=== PATIENT | male | born 1945 | race Caucasian/White ===

== ENCOUNTER 2019-11-04 11:07 | Emergency (ER) | payer MEDICARE, BC ==
[~2019-11-04] VITALS: Ht 165.1 cm; Wt 108.2 kg
[2019-11-04] MEDS ORDERED: morphine 4 MG/ML inj SYRINge IM ONE (12:40)
[2019-11-04] MEDS ORDERED: colchicine 0.6mg tablet PO ONE (12:40)
[2019-11-04] MEDS ORDERED: ketorolac tromethamine 15mg/ml inj. IM ONE (12:40)
[2019-11-04] MEDS ORDERED: COLC0.6T69 PO (12:43)
[2019-11-04 13:10] VITALS: BP 152/95
== END 2019-11-04 13:12 | disposition home or self-care (01) ==
LOC: ER 11:09
DX: M10.9 Gout, unspecified (principal); R22.42 Localized swelling, mass and lump, left lower limb; Z79.899 Other long term (current) drug therapy
CPT/HCPCS: 96372; 99284; J1885; J2270

== ENCOUNTER 2020-03-18 15:04 | Emergency (ER) | payer MEDICARE, BC ==
[~2020-03-18] VITALS: Ht 165.1 cm; Wt 97.0 kg
[~2020-03-18 15:04] MED LIST: COLC0.6T69 PO
[2020-03-18 15:43] LABS: BASOPHILS % (AUTO) 0.5 % (0-1); EOSINOPHILS # (AUTO) 0.2 X10'3 (0-0.9); EOSINOPHILS % (AUTO) 2.7 % (0-6); HEMATOCRIT 44.2 % (42.0-52.0); HEMOGLOBIN 14.7 g/dl (14.0-17.9); LYMPHOCYTES # (AUTO) 1.1 X10'3 (1.1-4.8); MEAN CORPUSCULAR HEMOGLOBIN 30.7 PG (27.0-31.0); MEAN CORPUSCULAR HGB CONC 33.3 g/dL (33.0-36.5); MEAN CORPUSCULAR VOLUME 92.2 FL (78-98); MEAN PLATELET VOLUME 8.9 FL (7.4-10.4); MONOCYTES # (AUTO) 0.6 X10'3 (0-0.9); NEUTROPHILS # (AUTO) 4.6 X10'3 (1.8-7.7); NEUTROPHILS % (AUTO) 70.8 % (42-75); PLATELET COUNT 201 X10'3 (140-440); RED CELL DISTRIBUTION WIDTH 13.5 % (11.5-14.5); WHITE BLOOD COUNT 6.5 X10'3 (4.5-11.0)
[2020-03-18 15:57] LABS: ALANINE AMINOTRANSFERASE 28 U/L (12-78); ALBUMIN 3.6 G/DL (3.4-5.0); ALBUMIN/GLOBULIN RATIO 1.3 (1.1-1.5); ALKALINE PHOSPHATASE 98 IU/L (46-116); ANION GAP 10 (8-16); ASPARTATE AMINO TRANSFERASE 20 U/L (10-37); BILIRUBIN,TOTAL 0.5 MG/DL (0.1-1.0); BLOOD UREA NITROGEN 13 MG/DL (7-18); BUN/CREATININE RATIO 9.5 (5.4-32.0); CALCIUM 8.5 MG/DL (8.5-10.1); CHLORIDE 110 MMOL/L (99-107); CREATININE 1.37 MG/DL (0.60-1.10); GLUCOSE 101 MG/DL (70-104); POTASSIUM 4.1 MMOL/L (3.5-5.1); SODIUM 145 MMOL/L (135-145); TOTAL PROTEIN 6.3 G/DL (6.4-8.2); eGFR 51 ML/MIN
[2020-03-18 16:04] LABS: MAGNESIUM 2.2 MG/DL (1.5-2.4)
[2020-03-18] MEDS ORDERED: normal saline 1000ML IV soln IVB ONE (16:05)
[2020-03-18 17:39] VITALS: BP 108/62
== END 2020-03-18 18:01 | disposition home or self-care (01) ==
LOC: ER 15:04
DX: E86.0 Dehydration (principal); R07.9 Chest pain, unspecified; R55 Syncope and collapse; R42 Dizziness and giddiness; R25.2 Cramp and spasm; F41.9 Anxiety disorder, unspecified; M10.9 Gout, unspecified; Z79.899 Other long term (current) drug therapy
CPT/HCPCS: 36415; 71045; 80053; 83735; 83880; 84484; 85025; 93005; 96360; 99285; J7030

== ENCOUNTER 2020-08-31 09:13 | Emergency (ER) | payer OTHER, MEDICARE, BC ==
[~2020-08-31] VITALS: Ht 165.1 cm; Wt 100.0 kg
[~2020-08-31 09:13] MED LIST changes: -COLC0.6T69 PO; +COLC0.6T72 PO
[2020-08-31 09:19] VITALS: BP 120/91
== END 2020-08-31 14:19 | disposition left against medical advice (07) ==
LOC: ER 09:14
DX: M54.9 Dorsalgia, unspecified (principal); Z53.21 Procedure and treatment not carried out due to patient leaving prior to being seen by health care provider

== ENCOUNTER 2022-01-17 05:24 | Inpatient (IN) | payer MEDICARE, BC ==
[2022-01-12 16:37] LABS: BASOPHILS % (AUTO) 0.7 % (0-1); EOSINOPHILS # (AUTO) 0.2 X10'3 (0-0.9); EOSINOPHILS % (AUTO) 3.1 % (0-6); LYMPHOCYTES # (AUTO) 1.2 X10'3 (1.1-4.8); LYMPHOCYTES % (AUTO) 20.1 % (21-51); MEAN CORPUSCULAR HEMOGLOBIN 31.3 PG (27.0-31.0); MEAN PLATELET VOLUME 7.9 FL (7.4-10.4); MONOCYTES # (AUTO) 0.5 X10'3 (0-0.9); MONOCYTES % (AUTO) 9.3 % (2-12); NEUTROPHILS # (AUTO) 3.9 X10'3 (1.8-7.7); NEUTROPHILS % (AUTO) 66.8 % (42-75); PRE OP HEMATOCRIT 45.2 % (42.0-52.0); PRE OP HEMOGLOBIN 15.4 g/dL (14.0-17.9); PRE OP PLATELET COUNT 207 X10'3 (140-440); RED BLOOD COUNT 4.91 X10'6 (4.70-6.10); RED CELL DISTRIBUTION WIDTH 13.3 % (11.5-14.5)
[2022-01-12 16:46] LABS: ALBUMIN 3.6 G/DL (3.4-5.0); ALBUMIN/GLOBULIN RATIO 1.2 (1.1-1.5); ALKALINE PHOSPHATASE 93 IU/L (46-116); BLOOD UREA NITROGEN 20 MG/DL (7-18); BUN/CREATININE RATIO 17.7 (5.4-32.0); CALCIUM 8.3 MG/DL (8.5-10.1); CHLORIDE 105 MMOL/L (99-107); CREATININE 1.13 MG/DL (0.60-1.10); PRE OP ALT 21 U/L (30-65); PRE OP ANION GAP 8 (8-16); PRE OP AST 16 U/L (10-37); PRE OP BILIRUB, TOTAL 0.6 MG/DL (0.0-1.0); PRE OP GLUCOSE 106 MG/DL (70-104); PRE OP POTASSIUM 3.4 MMOL/L (3.4-5.1); PRE OP SODIUM 140 MMOL/L (135-145); TOTAL CARBON DIOXIDE 26.8 MMOL/L (24-32); TOTAL PROTEIN 6.6 G/DL (6.4-8.2); eGFR 63 ML/MIN
[~2022-01-17] VITALS: Ht 165.1 cm; Wt 87.0 kg
[2022-01-17] VITALS (21 sets, daily range): BP systolic 104–130; BP diastolic 59–85
[~2022-01-17 05:24] MED LIST changes: +ANTIDEPRESSANT; -COLC0.6T72 PO; +HYDR-3965 PO; +ROPI0.2540 PO; +ringers solution, lacted 1,000 ML IV SCH
[2022-01-17] MEDS ORDERED: tranexamic acid 650mg tablet PO ONE (05:30)
[2022-01-17] MEDS ORDERED: famotidine 20mg tablet PO ONE (05:30)
[2022-01-17] MEDS ORDERED: cefazolin/dext.iso 2gm/50ml IV ONE (05:30)
[2022-01-17] MEDS ORDERED: vancomycin 1,500 MG in NS 300ml IV soln IV ONE (05:30)
--- NOTE | 2022-01-17 07:00 | NUR ---
PT HAS GOOD CSM BILATERALLY TO UPPER EXTREMITIES, WAS ABLE TO COMPLETE ALL 5 SHOWERS AND OINTMENT ORDERED.
[2022-01-17] MEDS ORDERED: ketorolac trometh. 30mg/ml inj. ONE (07:03)
[2022-01-17] MEDS ORDERED: ROPIVAcaine 0.5% (5mg/ml) 30ml vial ONE ×2 (07:03→08:32)
[2022-01-17] MEDS ORDERED: fentaNYL/PF 50MCG/1 ML 2ML syringe ONE (07:30)
[2022-01-17] MEDS ORDERED: MIDAZolam 1 MG/ML 5ML VIAL ONE (07:31)
[2022-01-17] MEDS ORDERED: ondansetron/PF 4mg/2ml inj ONE (08:32)
[2022-01-17] MEDS ORDERED: dexamethasone sod phosphate 4mg/ml inj. ONE (08:32)
[2022-01-17] MEDS ORDERED: propofol inj 20 ML IV ONE (08:32)
[2022-01-17] MEDS ORDERED: morphine 4 MG/ML inj SYRINge IV PRN (09:05)
[2022-01-17] MEDS ORDERED: morphine 2 MG/ML inj. syringe IV PRN (09:05)
[2022-01-17] MEDS ORDERED: ROPIVAcaine 0.2% (10 MG/5 ML) BOLUS INJECTION INTERSCALE PRN (09:05)
[2022-01-17] MEDS ORDERED: proCHLORperazine 10 MG/2 ml inj IV PRN (09:05)
[2022-01-17] MEDS ORDERED: meperidine/PF 25mg/ml syringe IV PRN ×3 (09:05)
[2022-01-17] MEDS ORDERED: ringers solution, lacted 1,000 ML IV SCH (09:05)
[2022-01-17] MEDS ORDERED: ROPIVAcaine 0.2%/PF PUMP/bolus 545 ML INTERSCALE SCH (09:05)
[2022-01-17] MEDS ORDERED: ondansetron/PF 4mg/2ml inj IV PRN ×2 (09:05→10:05)
--- NOTE | 2022-01-17 09:33 | NUR ---
Received from OR via HOSPITAL BED , accompanied by Anesthesiologist DR GONZALEZ and report given by Anesthesiolgist. PT PRESENTS WITH 18G LEFT HAND, ORAL AIRWAY, MASK 10L, RIGHT SHOULDER WRAP WITH ISLAND DRESSING AND POWDER PACK. VSS. Addendum: 01/17/22 at 0953 by Daniela Self RN, RN Amended: Links added.
--- NOTE | 2022-01-17 09:40 | NUR ---
PT ORAL AIRWAY ROMIAN, PT IS ABLE TO PROTECT AIRWAY AT THIS TIME. PT GIVEN GLASES AND HEARING AIDS. Addendum: 01/17/22 at 0953 by Daniela Self RN, RN Amended: Links added.
[2022-01-17] MEDS ORDERED: magnesium hydroxide 30ml (MOM) UD suspension PO PRN (10:05)
[2022-01-17] MEDS: potassium cl 20mEq in 1/2 NS 1,000 ML IV SCH ×2 (10:05→20:13)
[2022-01-17] MEDS ORDERED: diphenhydrAMINE 25mg capsule PO PRN ×2 (10:05)
[2022-01-17] MEDS ORDERED: acetaminophen 325mg tablet PO PRN (10:05)
[2022-01-17] MEDS ORDERED: HYDROmorphone inj. 0.5 MG/0.5 ML DISP.SYRIN IV PRN (10:05)
[2022-01-17] MEDS ORDERED: bisacodyl 10mg suppository rectal RC PRN (10:05)
[2022-01-17] MEDS ORDERED: naloxone 0.4 mg/ml inj IV PRN (10:05)
[2022-01-17] MEDS ORDERED: oxyCODONE IR 5mg (immed. release) tablet PO PRN ×2 (10:05)
[2022-01-17] MEDS ORDERED: HYDROmorphone 1 mg/ml syringe IV PRN (10:05)
--- NOTE | 2022-01-17 10:53 | NUR ---
Report called to receiving nurse MARLENI OMER. Transferred via HOSITAL BED WITH PT'S TO ROOM 4009A. ONE PT Belongings BAG SENT WITH PT, GLASSES UPPER DENTURE AND HEARING AIDS. BED IN LOW LOCKED POSITION WITH CALL LIGHT IN REACH,PT HOOKED UP TO POST VITAL MACHINE. MARLENI RN IN ROOM. Special Issues communicated to receiving nurse. Addendum: 01/17/22 at 1111 by Daniela Self RN RN Amended: Links added.
--- NOTE | 2022-01-17 11:00 | NUR ---
Received report from recovery all questions answered at this time.
[2022-01-17] MEDS ORDERED: HYDR-3972 PO (13:10)
[2022-01-17] MEDS ORDERED: OXCA600T9 PO (13:10)
[2022-01-17] MEDS ORDERED: CYAN100097 PO (13:10)
[2022-01-17] MEDS ORDERED: ROPI1TAB6 PO (13:10)
--- NOTE | 2022-01-17 13:23 | NUR ---
Patients gag reflex checked at this time and was positive so gave patient water.
[2022-01-17] MEDS: acetaminophen 325mg tablet PO SCH ×2 (15:03→20:00)
[2022-01-17] MEDS ORDERED: ROPINIRole 1mg tablet PO PRN (16:05)
[2022-01-17] MEDS: ceFAZolin/D5W- 1GM premix 50 ML IV SCH ×2 (16:45→23:40)
--- NOTE | 2022-01-17 18:16 | NUR ---
Problems reprioritized. Patient report given, questions answered & plan of care reviewed with Diana OMER.
[2022-01-17] MEDS ORDERED: vancomycin/NS 1 GM ADD-VANTAGE 250 ML IV SCH (20:00)
[2022-01-17] MEDS ORDERED: sennosides 8.6mg tablet PO SCH (21:00)
[2022-01-17] MEDS ORDERED: oxcarbazepine 150mg tablet PO SCH (21:00)
--- NOTE | 2022-01-17 21:26 | NUR ---
Patient requested compression wrap be removed at this time as it was irritating him. Educated patient on purpose of compression wrap per education by MD to nursing staff. Patient verbalized understanding and still request that compression wrap be removed at this time. Patient requested honored.
[2022-01-18 01:55] VITALS: BP 101/58
[2022-01-18] MEDS: acetaminophen 325mg tablet PO SCH ×2 (01:55→08:00)
[2022-01-18] MEDS: potassium cl 20mEq in 1/2 NS 1,000 ML IV SCH ×2 (02:05→10:05)
[2022-01-18 06:00] VITALS: BP 103/57
[2022-01-18 06:01] LABS: BASOPHILS % (AUTO) 0.1 % (0-1); EOSINOPHILS % (AUTO) 0 % (0-6); HEMOGLOBIN 14.1 g/dl (14.0-17.9); LYMPHOCYTES # (AUTO) 0.8 X10'3 (1.1-4.8); LYMPHOCYTES % (AUTO) 6.8 % (21-51); MEAN CORPUSCULAR HEMOGLOBIN 30.5 PG (27.0-31.0); MEAN CORPUSCULAR HGB CONC 33.6 g/dL (33.0-36.5); MEAN CORPUSCULAR VOLUME 90.8 FL (78-98); MONOCYTES # (AUTO) 0.9 X10'3 (0-0.9); NEUTROPHILS # (AUTO) 9.5 X10'3 (1.8-7.7); NEUTROPHILS % (AUTO) 85.1 % (42-75); PLATELET COUNT 190 X10'3 (140-440); RED BLOOD COUNT 4.62 X10'6 (4.70-6.10); RED CELL DISTRIBUTION WIDTH 13.3 % (11.5-14.5); WHITE BLOOD COUNT 11.1 X10'3 (4.5-11.0)
--- NOTE | 2022-01-18 06:12 | NUR ---
Report given to Denys OMER
[2022-01-18 06:18] LABS: ANION GAP 10 (8-16); CHLORIDE 107 MMOL/L (99-107); POTASSIUM 3.8 MMOL/L (3.5-5.1); SODIUM 143 MMOL/L (135-145); TOTAL CARBON DIOXIDE 25.9 MMOL/L (24-32)
--- NOTE | 2022-01-18 06:19 | NUR ---
Patient in room ORTHO 4009. I have received report from Gely OMER and had the opportunity to ask questions and assume patient care.
[2022-01-18] MEDS ORDERED: aspirin 325mg tablet PO SCH (08:30)
[2022-01-18 10:15] VITALS: BP 119/56
[2022-01-18] MEDS ORDERED: ROPIVAcaine 0.2%/PF PUMP/bolus 545 ML INTERSCALE SCH (11:37)
--- NOTE | 2022-01-18 11:59 | NUR ---
discharge orders explained, new On Q ball provided with instructions for changing and removing given, PIV removed, ambulated to lobby with staff and
[2022-01-18] MEDS ORDERED: celeCOXIB 100mg capsule PO SCH (20:00)
[2022-01-19] MEDS ORDERED: acetaminophen 325mg tablet PO PRN (10:05)
== END 2022-01-18 11:50 | disposition home or self-care (01) | DRG 483 ==
LOC: PAS IN 05:24 → EDSTATUS 09:00 → ORTHO 4S 11:00
PROVIDERS: ADMIT Orthopaedic Surgery; ATTEND Orthopaedic Surgery
PROC: 0LS30ZZ Reposition Right Upper Arm Tendon, Open Approach (ICD-10-PCS; 2022-01-17)
PROC: 3E0T3BZ Introduction of Anesthetic Agent into Peripheral Nerves and Plexi, Percutaneous Approach (ICD-10-PCS; 2022-01-17)
PROC: 3E0T33Z Introduction of Anti-inflammatory into Peripheral Nerves and Plexi, Percutaneous Approach (ICD-10-PCS; 2022-01-17)
PROC: 0RRJ00Z Replacement of Right Shoulder Joint with Reverse Ball and Socket Synthetic Substitute, Open Approach (ICD-10-PCS; principal; 2022-01-17 07:22)
DX: M19.011 Primary osteoarthritis, right shoulder (principal); E66.9 Obesity, unspecified; M75.101 Unspecified rotator cuff tear or rupture of right shoulder, not specified as traumatic; M65.811 Other synovitis and tenosynovitis, right shoulder; F43.10 Post-traumatic stress disorder, unspecified; G47.30 Sleep apnea, unspecified; Z68.31 Body mass index [BMI] 31.0-31.9, adult; Z79.899 Other long term (current) drug therapy
CPT/HCPCS: 36415; 80051; 80053; 82948; 85025; 87081; 87635; 93005; 97110; 97161; A4565; A4618; A7000; C1776; C9803; G0378; J0690; J1100; J1885; J2250; J2405; J2704; J2795; J3010; J3370; J3480; J3490; J7040; J7120